=== PATIENT | male | born 1955 | race Caucasian/White ===

== ENCOUNTER → 2023-07-20 07:17 | Outpatient (REF) | payer MEDICARE, OTHER, SELFPAY ==
[2023-07-20 08:17] LABS: Microalbumin, Random Urine 3.2 mg/dl (0.6-1.7)
[2023-07-20 09:56] LABS: ALT (SGPT) 21 U/L (0-50); AST (SGOT) 27 U/L (17-59); Albumin 4.6 g/dl (3.5-5.0); Alkaline Phosphatase 59 U/L (38-126); Blood Urea Nitrogen 15 mg/dl (9-20); Calcium 9.2 mg/dl (8.4-10.2); Carbon Dioxide 26 mmol/L (22-30); Chloride 105 mmol/L (98-107); Glucose 143 mg/dl (70-99); HDL Cholesterol 48 mg/dl; LDL Cholesterol, Calculated 165 mg/dl; Potassium 4.2 mmol/L (3.5-5.1); Sodium 136 mmol/L (135-145); Total Bilirubin 1.1 mg/dl (0.2-1.3); Total Cholesterol 270 mg/dl (50-199); Total Protein 7.6 g/dl (6.3-8.2); Triglyceride 289 mg/dl (10-149); Very Low Density Lipoprotein 57 mg/dl (0-30); eGFR > 60.00
[2023-07-20 10:25] LABS: Glycohemoglobin (HgbA1c) 6.8 % (4.0-5.6)
== END ==
LOC: RAD 07:17
PROVIDERS: ATTENDING PHYSICIAN Family Medicine
DX: M54.12 Radiculopathy, cervical region (principal); E11.9 Type 2 diabetes mellitus without complications
CPT/HCPCS: 36415; 72050; 80053; 80061; 82043; 83036

== ENCOUNTER → 2023-08-30 09:22 | Outpatient (REF) | payer MEDICARE, OTHER, SELFPAY | LOC: PAVMRI 09:22 | PROVIDERS: ATTENDING PHYSICIAN Physical Medicine & Rehabilitation; FAMILY PHYSICIAN Internal Medicine | DX: M54.12 Radiculopathy, cervical region (principal) | CPT/HCPCS: 72141 ==

== ENCOUNTER → 2024-01-10 06:16 | Day surgery (SDC) | payer MEDICARE, OTHER, SELFPAY ==
[2024-01-10 12:09] LABS: Glucose - Point of Care 134 mg/dl (70-99)
== END ==
LOC: GI 06:16
PROVIDERS: ATTENDING PHYSICIAN Internal Medicine
DX: R13.10 Dysphagia, unspecified (principal); K44.9 Diaphragmatic hernia without obstruction or gangrene; K31.7 Polyp of stomach and duodenum; K22.2 Esophageal obstruction
CPT/HCPCS: 43249; 43239; 88305; 82962; 88342

== ENCOUNTER 2024-01-17 21:32 | Emergency (ER) | payer MEDICARE, OTHER, SELFPAY ==
[2024-01-17] VITALS (7 sets, daily range): BP systolic 144–221; BP diastolic 77–113; BMI 27.4
[2024-01-17 22:12] LABS: % Basophils 0.7 % (0-2); % Eosinophils 2.8 % (0-6); % Immature Granulocytes 0.3 % (0-0.5); % Monocytes 5.9 % (1.7-9.3); % Neutrophils 59.3 % (42.2-75.2); Absolute Basophils 0.1 10^3/uL (0-0.2); Absolute Eosinophils 0.2 10^3/uL (0-0.7); Absolute Lymphocytes 2.3 10^3/uL (1.2-3.4); Absolute Monocytes 0.4 10^3/uL (0.1-0.6); Absolute Neutrophils 4.4 10^3/uL (1.4-6.5); Hematocrit 45.2 % (39.0-52.0); Hemoglobin 15.7 g/dL (13.0-18.0); Mean Corp Hgb Conc. 34.7 g/dL (33.0-37.0); Mean Corpuscular Hgb 29.2 pg (27.0-31.0); Mean Platelet Volume 10.5 fL (7.4-10.4); Nucleated Red Blood Cells % 0 % (-); Platelet Count 173 10^3/uL (130-400); Red Blood Cell Count 5.38 10^6/uL (4.70-6.10); Red Cell Dist. Width 12.9 % (11.5-14.5); White Blood Cell Count 7.4 10^3/uL (4.8-10.8)
[2024-01-17 22:25] LABS: INR 0.87; PT 12.4 Sec (11.4-14.6)
[2024-01-17 22:26] LABS: APTT 30.5 Sec (23.4-35.0)
[2024-01-17 22:33] LABS: Glucose - Point of Care 155 mg/dl (70-99)
[2024-01-17 22:36] LABS: ALT (SGPT) 30 U/L (0-50); AST (SGOT) 34 U/L (17-59); Albumin 5.2 g/dl (3.5-5.0); Alkaline Phosphatase 54 U/L (38-126); Blood Urea Nitrogen 15 mg/dl (9-20); Calcium 9.8 mg/dl (8.4-10.2); Carbon Dioxide 25 mmol/L (22-30); Chloride 102 mmol/L (98-107); Estimated Creatinine Clearance 64 ml/min; Glucose 169 mg/dl (70-99); Potassium 4.1 mmol/L (3.5-5.1); Sodium 142 mmol/L (135-145); Total Bilirubin 0.8 mg/dl (0.2-1.3); Total Protein 8.3 g/dl (6.3-8.2); Troponin I 0.019 ng/ml; eGFR > 60.00
[2024-01-18] VITALS: BP 140/74
[2024-01-18 00:28] LABS: Troponin I 0.019 ng/ml
[2024-01-18 00:30] VITALS: BP 142/70
[2024-01-18 01:00] VITALS: BP 141/73
--- NOTE | 2024-01-18 01:27 | ED.GENMED ---
History of Present Illness
General
Chief Complaint: Numbness
Source: patient
Exam Limitations: none
Time Seen by Provider: 01/17/24 21:51
History of Present Illness
History of Present Illness:
This is a 68-year-old male with a history of coronary disease who presented after he had raise his arms above his head and suddenly noticed a tingling and numbness down into the right arm. Patient does not cervical spine disease and has had a
fusion. He states that the symptoms are much better now. He states he first got numb and tingly and then the tingling started to resolve shortly after that. It is now completely gone. He does admit that for the last 24 hours has had fatigue and
weakness. He states that he had a long hard day of work yesterday. He states since then he has been just tired and fatigued. He has had a little bit chest pain throughout the day today that has been constant and mild. He states it is nothing
like when he had his heart attack. No motor weakness. No vision changes. No speech changes.
Past History
Past History
ED Past Medical History: CAD, CHF, GERD, HTN, Hypercholesterolemia, [place] (September 2012), Psychiatric (Depression) and Other (Diverticulitis, cervical disc disease)
ED Past Surgical History: Appendectomy, Bowel resection, Cardiac (PTCA with stent LAD September 2012, October 2001, February 2004) and Orthopedic (Left biceps repair)
Social History
Tobacco: Former smoker
Alcohol: Occasional
Personal:
Living: with family
Employment: Not employed
Family History
Family History: CAD
Phy Exam
Physical Exam
Physical Exam:
CONSTITUTIONAL Patient alert and oriented to person, place and time. Well-appearing. Vital signs reviewed.
HEAD atraumatic, normocephalic.
EYES eyelids normal to inspection, Extraocular muscles intact, Conjunctiva normal, Sclera normal.
NECK normal range of motion, Trachea midline, no jugular venous distention.
RESPIRATORY CHEST No respiratory distress noted, Chest expansion equal, Bilateral breath sounds clear.
CARDIOVASCULAR regular rate and rhythm, Heart sounds normal.
ABDOMEN abdomen nontender, Bowel sounds normal. No distention.
BACK normal inspection, no obvious deformities
UPPER EXTREMITY range of motion normal, Motor strength normal, no cyanosis, no edema.
LOWER EXTREMITY range of motion normal, Motor strength normal, no cyanosis, no edema.
NEURO Speech normal, No focal motor deficits, [place] coma scale 15, Memory normal, Cranial Nerves intact to screening exam. No pronator drift.
SKIN skin warm, dry, and normal in color.
Course
Orders/Labs/Results
Orders:
Orders
01/17/24 21:38
Electrocardiogram (*1) Urgent
Reason for Study: Other
Other Reason for Exam: Possible Stroke
Bedside Glucose- Treatment ONCE
EKG- Treatment ONCE
01/17/24 22:04
Complete Blood Count/With Diff Urgent
Comprehensive Metabolic Panel Urgent
PTT Urgent
Prothrombin Time Urgent
Troponin I Urgent
01/17/24 23:15
Chest [CR Chest - 2 Views ] Urgent
Comment:
Reason For Exam: Chest pain
01/17/24 23:54
Troponin I Urgent
Abnormal Lab Results
01/17/24 01/17/24
22:04 22:32
MPV 10.5 H fL
(7.4-10.4)
Glucose 169 H mg/dl
(70-99)
Total Protein 8.3 H g/dl
(6.3-8.2)
Albumin 5.2 H g/dl
(3.5-5.0)
POC Glucose 155 H mg/dl
(70-99)
01/17/24 22:04
01/17/24 22:04
Vital Signs
Initial and Last Documented VS:
Initial Vital Signs
Temp Pulse Resp BP Pulse Ox
98.4 F 64 16 221/113 100
01/17/24 21:35 01/17/24 21:35 01/17/24 21:35 01/17/24 21:35 01/17/24 21:35
Last Documented Vital Signs
Temp Pulse Resp BP Pulse Ox
98.4 F 48 18 147/78 95
01/17/24 21:35 01/17/24 23:30 01/17/24 23:30 01/17/24 23:30 01/17/24 23:30
MDM/Problems Addressed
Differential Diagnosis Includes:
Dissection, NE, ACS, cervical radiculopathy, CVA, electrolyte imbalance, dehydration
MDM/Problems Addressed:
Cervical radiculopathy, fatigue, chest pain
*Radiology
Radiology exam reviewed: all reviewed NAD by ED Provider
*Pulse Oximetry
Patient hypoxic: no
*Steam Fitter Supervisor Interpretation
Rate: normal
Interpretation: normal
Rhythm: sinus
*Critical Care Note
Total Time (30-74mins, 75-104mins- exclusive of procedures): 30 minutes
Data Reviewed
Review of Other/Old Records Reveals: Other (Prior EKG reviewed)
Source: patient
Further Testing Considered But Not Given:
Considered head CT but right upper extremity symptoms suspected to be cervical radiculopathy as it was related to an overhead position of the right upper extremity
Patient Management
Escalation/DeEscalation of care consider admission/obs:
Patient appears well and has a nonfocal exam. I suspect that the sensory change in his arm is related to his arm position as it only occurred while his hand was over his head. No clinical suspicion for CVA due to his fatigue and mild vague chest
discomfort, troponin x 2 unremarkable. Patient otherwise appears well feels well. Okay for discharge and outpatient follow-up
ED Attending Note
-
Portions of this chart may have been created with voice recognition software.� Occasional wrong word or��sound alike� substitutions may have occurred due to the inherent limitations of voice recognition software.
Discharge Plan
Departure
Patient Disposition: Home (Routine Discharge)
Date of Disposition: 01/18/24
Time of Disposition: 01:41
Patient with high blood pressure during this ER visit?: Yes
Discharge Problem:
Cervical radiculopathy, Fatigue
Instructions: Paresthesia (DC), BLOOD PRESSURE
Prescriptions:
No Action
lisinopril 10 mg Tablet
10 mg PO DAILY
aspirin 81 MG tablet,delayed release (DR/EC)
81 mg PO DAILY
atorvastatin 80 mg tablet
80 mg PO DAILY
Jardiance 10 mg Tablet
10 mg PO DAILY
pantoprazole [Protonix] 40 mg tablet,delayed release (DR/EC)
40 mg PO DAILY
Referrals:
UNKNOWN - PT DOES,NOT KNOW [Family Provider] -
Activity Restrictions/Additional Instructions:
Please see your doctor in the next 2 to 3 days for follow-up and reevaluation. Return immediately for worsening symptoms, tingling, motor weakness, chest pain, shortness of breath, palpitations or any other concerns.
Interventions
Interventions:
*Risk Screen - Suicide Last Done: 01/17/24 21:35
*General Assessment Last Done: 01/17/24 22:13
*Neglect/Abuse Screening Last Done: 01/17/24 21:35
ED- Fall Risk Assessment Last Done: 01/17/24 22:13
*ED COVID-19 Vaccine History Last Done: 01/17/24 22:13
ED- Neurological Assessment Last Done: 01/17/24 22:13
Discharge Date and Time
Print Language: HAITIAN
[2024-01-18 01:30] VITALS: BP 144/69
[2024-01-18 02:00] VITALS: BP 136/64
== END 2024-01-18 02:16 | disposition home or self-care (01) ==
LOC: EMR 21:32
PROVIDERS: Student in an Organized Health Care Education/Training Program; EMERGENCY PHYSICIAN Emergency Medicine
DX: M54.12 Radiculopathy, cervical region (principal); R53.83 Other fatigue; I25.10 Atherosclerotic heart disease of native coronary artery without angina pectoris; I11.0 Hypertensive heart disease with heart failure; I50.9 Heart failure, unspecified; E78.00 Pure hypercholesterolemia, unspecified; I25.2 Old myocardial infarction; K21.9 Gastro-esophageal reflux disease without esophagitis; Z87.891 Personal history of nicotine dependence; Z95.5 Presence of coronary angioplasty implant and graft; Z90.49 Acquired absence of other specified parts of digestive tract
CPT/HCPCS: 99285; 71046; 80053; 82962; 84484; 85025; 85610; 85730; 93005

== ENCOUNTER 2024-04-11 06:23 | Day surgery (SDC) | payer MEDICARE, OTHER, SELFPAY ==
[2024-04-11 10:14] LABS: Glucose - Point of Care 134 mg/dl (70-99)
== END 2024-04-11 11:30 | disposition home or self-care (01) ==
LOC: GI 06:23
PROVIDERS: ATTENDING PHYSICIAN Internal Medicine
DX: Z12.11 Encounter for screening for malignant neoplasm of colon (principal); K63.89 Other specified diseases of intestine; K57.30 Diverticulosis of large intestine without perforation or abscess without bleeding; K64.9 Unspecified hemorrhoids; D12.2 Benign neoplasm of ascending colon
CPT/HCPCS: 45380; 88305; 82962

== ENCOUNTER 2024-06-20 11:00 | Emergency (ER) | payer MEDICARE, OTHER, SELFPAY ==
[2024-06-20] VITALS (9 sets, daily range): BP systolic 132–155; BP diastolic 65–125
[2024-06-20 11:42] LABS: % Basophils 0.2 % (0-2); % Eosinophils 1.5 % (0-6); % Immature Granulocytes 0.5 % (0-0.5); % Lymphocytes 14.9 % (20.5-51.1); % Monocytes 6.1 % (1.7-9.3); % Neutrophils 76.8 % (42.2-75.2); Absolute Eosinophils 0.1 10^3/uL (0-0.7); Absolute Lymphocytes 1.2 10^3/uL (1.2-3.4); Absolute Monocytes 0.5 10^3/uL (0.1-0.6); Absolute Neutrophils 6.2 10^3/uL (1.4-6.5); Hematocrit 45.5 % (39.0-52.0); Hemoglobin 15.3 g/dL (13.0-18.0); Mean Corp Hgb Conc. 33.6 g/dL (33.0-37.0); Mean Corpuscular Hgb 28.8 pg (27.0-31.0); Mean Corpuscular Volume 85.5 fL (80.0-94.0); Mean Platelet Volume 11.1 fL (7.4-10.4); Nucleated Red Blood Cells % 0 % (-); Platelet Count 156 10^3/uL (130-400); Red Blood Cell Count 5.32 10^6/uL (4.70-6.10); Red Cell Dist. Width 13.2 % (11.5-14.5); White Blood Cell Count 8.1 10^3/uL (4.8-10.8)
[2024-06-20 11:59] LABS: ALT (SGPT) 26 U/L (0-50); AST (SGOT) 28 U/L (17-59); Albumin 4.6 g/dl (3.5-5.0); Alkaline Phosphatase 67 U/L (38-126); Blood Urea Nitrogen 19 mg/dl (9-20); Calcium 9.6 mg/dl (8.4-10.2); Carbon Dioxide 30 mmol/L (22-30); Chloride 103 mmol/L (98-107); Glucose 128 mg/dl (70-99); Potassium 4.4 mmol/L (3.5-5.1); Sodium 143 mmol/L (135-145); Total Bilirubin 1.2 mg/dl (0.2-1.3); Total Protein 7.9 g/dl (6.3-8.2); eGFR > 60.00
[2024-06-20 12:10] LABS: Troponin I < 0.012 ng/ml
--- NOTE | 2024-06-20 13:53 | ED.GENMED ---
History of Present Illness
<José Miguel Sauer Jr., PA-C - Last Filed: 06/21/24 10:31>
General
Chief Complaint: Chest Pain
Source: patient
Exam Limitations: none
Time Seen by Provider: 06/20/24 11:39
Nursing documentation reviewed up to this point in time: agreed with
History of Present Illness
History of Present Illness:
69-year-old male with past medical history of CAD hypertension hyperlipidemia presenting to the emergency department today with concerns of chest discomfort described as sharp abrupt started 3 days ago but has been somewhat ongoing since then now
with radiation to the back denies shortness of breath presented by the primary care doctor. Also has had some increased gas to the upper GI tract as well. Denies similar symptoms in the past. Has had heart attack in the past this feels very
different.
Past History
<José Miguel Sauer Jr., PA-C - Last Filed: 06/21/24 10:31>
Past History
ED Past Medical History: CAD, CHF, GERD, HTN, Hypercholesterolemia, [place] (September 2012), Psychiatric (Depression) and Other (Diverticulitis, cervical disc disease)
ED Past Surgical History: Appendectomy, Bowel resection, Cardiac (PTCA with stent LAD September 2012, October 2001, February 2004) and Orthopedic (Left biceps repair)
Social History
Tobacco: Former smoker
Alcohol: Occasional
Personal:
Living: with family
Employment: Not employed
Family History
Family History: CAD
Review of Systems
<JULIO Montana Jr. Last Filed: 06/21/24 10:31>
Review of Systems
Allergies reviewed?: Yes
All Other Systems: ROS reviewed and negative except as documented in HPI and ROS
Phy Exam
<JULIO Montana Jr. Last Filed: 06/21/24 10:31>
Physical Exam
Physical Exam:
GENERAL: Alert , in no apparent distress
EYE: pupils equal and reactive
NECK: Supple, no significant adenopathy.
ENT: o/p clr, mmm.
CARDIAC: Regular rate and rhythm .
LUNGS: Clear breath sounds bilaterally, no acute respiratory distress, no wheezes/rales/rhonchi
ABDOMEN: Soft, without focal tenderness, no r/g, no cvat
NEUROLOGICAL: Alert and oriented, no focal neuro deficits
SKIN: Warm and dry, skin intact.
MUSCULOSKELETAL: No edema, well perfused.
PSYCH: Normal and appropriate interaction.
Scores
<Smita Fong PA-C - Last Filed: 06/21/24 01:34>
Heart Score for Chest Pain Patients
STEMI patient?: Not applicable
Course
<José Miguel Sauer Jr., PA-C - Last Filed: 06/21/24 10:31>
Orders/Labs/Results
Orders:
Orders
06/20/24 11:00
Electrocardiogram (*1) Urgent
Reason for Study: Chest Pain
EKG- Treatment ONCE
06/20/24 11:37
Complete Blood Count/With Diff Urgent
Comprehensive Metabolic Panel Urgent
Lipase Urgent
Troponin I Urgent
06/20/24 12:05
CT Chest PE Study Urgent
Comment:
Reason For Exam: cp to back sharp
06/20/24 13:54
Electrocardiogram (*1) Urgent
Reason for Study: Chest Pain
EKG- Treatment ONCE
06/20/24 14:01
Troponin I Urgent
06/20/24 14:42
Add On- LAB Urgent
Tests Added?: lipase
06/20/24 16:00
Electrocardiogram (*1) Urgent
Reason for Study: Chest Pain
EKG- Treatment ONCE
06/20/24 16:18
Troponin I Urgent
Abnormal Lab Results
06/20/24
11:37
MPV 11.1 H fL
(7.4-10.4)
Neutrophils % 76.8 H %
(42.2-75.2)
Lymphocytes % 14.9 L %
(20.5-51.1)
Glucose 128 H mg/dl
(70-99)
06/20/24 11:37
06/20/24 11:37
Vital Signs
Initial and Last Documented VS:
Initial Vital Signs
Temp Pulse Resp BP Pulse Ox
97.8 F 62 14 154/76 100
06/20/24 11:05 06/20/24 11:05 06/20/24 11:05 06/20/24 11:05 06/20/24 11:05
Last Documented Vital Signs
Temp Pulse Resp BP Pulse Ox
98.2 F 58 22 132/65 98
06/20/24 11:09 06/20/24 17:30 06/20/24 17:30 06/20/24 17:00 06/20/24 11:09
<Smita Fong PA-C - Last Filed: 06/21/24 01:34>
Orders/Labs/Results
Orders:
Orders
06/20/24 11:00
Electrocardiogram (*1) Urgent
Reason for Study: Chest Pain
EKG- Treatment ONCE
06/20/24 11:37
Complete Blood Count/With Diff Urgent
Comprehensive Metabolic Panel Urgent
Lipase Urgent
Troponin I Urgent
06/20/24 12:05
CT Chest PE Study Urgent
Comment:
Reason For Exam: cp to back sharp
06/20/24 13:54
Electrocardiogram (*1) Urgent
Reason for Study: Chest Pain
EKG- Treatment ONCE
06/20/24 14:01
Troponin I Urgent
06/20/24 14:42
Add On- LAB Urgent
Tests Added?: lipase
06/20/24 16:00
Electrocardiogram (*1) Urgent
Reason for Study: Chest Pain
EKG- Treatment ONCE
06/20/24 16:18
Troponin I Urgent
Abnormal Lab Results
06/20/24
11:37
MPV 11.1 H fL
(7.4-10.4)
Neutrophils % 76.8 H %
(42.2-75.2)
Lymphocytes % 14.9 L %
(20.5-51.1)
Glucose 128 H mg/dl
(70-99)
06/20/24 11:37
06/20/24 11:37
Vital Signs
Initial and Last Documented VS:
Initial Vital Signs
Temp Pulse Resp BP Pulse Ox
97.8 F 62 14 154/76 100
06/20/24 11:05 06/20/24 11:05 06/20/24 11:05 06/20/24 11:05 06/20/24 11:05
Last Documented Vital Signs
Temp Pulse Resp BP Pulse Ox
98.2 F 58 22 132/65 98
06/20/24 11:09 06/20/24 17:30 06/20/24 17:30 06/20/24 17:00 06/20/24 11:09
<José Miguel Sauer Jr., PA-C - Last Filed: 06/21/24 10:31>
MDM/Problems Addressed
MDM/Problems Addressed:
69-year-old male presenting to the emergency department today with concerns of chest pain rating to the back worsening over the past 3 days. Denies shortness of breath has had intermittent sweatiness. CT PE performed concerning the patient has
concerns of pain rating to the back also concern for possible aortic pathology. Case signed out pending CT scan. Otherwise well throughout the ER stay. 2 negative troponin levels EKGs.
<Smita R. Derham, PA-C - Last Filed: 06/21/24 01:34>
*Critical Care Note
Total Time (30-74mins, 75-104mins- exclusive of procedures): Not Applicable
<Smita Fong PA-C - Last Filed: 06/21/24 01:34>
Update Note
Update Note:
Update: Received patient in sign out. CTA chest negative for any evidence of pulmonary embolism, aortic dissection, or acute abnormalities of lungs. Repeat troponin undetectable. EKG�s remain unchanged. Low suspicion for acute coronary syndrome
given serial troponins negative x3 with stable EKGs. Patient remains well appearing, and no apparent distress. Feel patient stable for discharge home. Given risk factors will place patient on chest pain hotline however do suspect possibly an
underlying component of GERD. Will advise famotidine daily and close monitoring of symptoms at home. Strict return precautions discussed. Patient verbalized understanding.
ED Attending Note
<José Miguel Sauer Jr., PA-C - Last Filed: 06/21/24 10:31>
-
Portions of this chart may have been created with voice recognition software.� Occasional wrong word or��sound alike� substitutions may have occurred due to the inherent limitations of voice recognition software.
Discharge Plan
Departure
Patient Disposition: Home (Routine Discharge)
Date of Disposition: 06/20/24
Time of Disposition: 17:30
Patient with high blood pressure during this ER visit?: No
Condition: Good
Covid-19: Not Applicable
Discharge Problem:
Chest pain
Instructions: Chest Pain DCA Follow Up, BLOOD PRESSURE
Prescriptions:
No Action
lisinopril 10 mg Tablet
10 mg PO DAILY
aspirin 81 MG tablet,delayed release (DR/EC)
81 mg PO DAILY
atorvastatin 80 mg tablet
80 mg PO DAILY
Jardiance 10 mg Tablet
10 mg PO DAILY
pantoprazole [Protonix] 40 mg tablet,delayed release (DR/EC)
40 mg PO DAILY
Referrals:
Александр Soto MD [Family Provider] -
Александр Modi MD [Active] - Follow up in 2-3 days
Activity Restrictions/Additional Instructions:
Return to the emergency department with any worsening chest pain or shortness of breath, chest pain worse with exertion or associated with nausea, light headedness, sweatiness, fevers, intractable vomiting, or any other concerns
- Your workup in the emergency department was negative. Your lab work showed no acute abnormalities. Your CT scan showed no evidence of a pulmonary embolism or aortic dissection.
- You can take OTC famotidine daily for the next 2 weeks to see if this helps improve symptoms. Stay well-hydrated. Get plenty of rest.
- Follow-up with cardiology for further evaluation/management. You will likely require further testing. Limit exertional activities until cleared by cardiology.
Monitor your symptoms closely and return to the emergency department with any acute worse/new symptoms or any other
Interventions
Interventions:
*Risk Screen - Suicide Last Done: 06/20/24 11:09
*General Assessment Last Done: 06/20/24 11:41
*Neglect/Abuse Screening Last Done: 06/20/24 11:09
*ED- Fall Risk Assessment Last Done: 06/20/24 11:41
*Nursing Disposition Last Done: 06/20/24 18:10
ED- Cardiac Assessment Last Done: 06/20/24 11:45
Discharge Date and Time
Discharge Date/Time: 06/20/24 18:10
Print Language: FRISIAN
[2024-06-20 14:39] LABS: Troponin I 0.014 ng/ml
[2024-06-20 15:40] LABS: Lipase 90 U/L (23-300)
[2024-06-20 17:15] LABS: Troponin I < 0.012 ng/ml
== END 2024-06-20 18:10 | disposition home or self-care (01) ==
LOC: EMR 11:00
PROVIDERS: Physician Assistant; Student in an Organized Health Care Education/Training Program; EMERGENCY PHYSICIAN Emergency Medicine; FAMILY PHYSICIAN Family Medicine
DX: R07.89 Other chest pain (principal); I25.10 Atherosclerotic heart disease of native coronary artery without angina pectoris; I11.0 Hypertensive heart disease with heart failure; I50.9 Heart failure, unspecified; E78.00 Pure hypercholesterolemia, unspecified; I25.2 Old myocardial infarction; Z87.891 Personal history of nicotine dependence; Z90.49 Acquired absence of other specified parts of digestive tract; Z95.5 Presence of coronary angioplasty implant and graft
CPT/HCPCS: 99284; 71275; 80053; 83690; 84484; 85025; 93005; Q9967

== ENCOUNTER → 2024-08-01 06:51 | Outpatient (REF) | payer MEDICARE, OTHER, SELFPAY ==
[2024-08-01 07:28] LABS: % Basophils 0.4 % (0-2); % Eosinophils 3.3 % (0-6); % Immature Granulocytes 0.4 % (0-0.5); % Lymphocytes 26.4 % (20.5-51.1); % Monocytes 6.1 % (1.7-9.3); % Neutrophils 63.4 % (42.2-75.2); Absolute Eosinophils 0.2 10^3/uL (0-0.7); Absolute Lymphocytes 1.8 10^3/uL (1.2-3.4); Absolute Monocytes 0.4 10^3/uL (0.1-0.6); Absolute Neutrophils 4.4 10^3/uL (1.4-6.5); Hematocrit 44.3 % (39.0-52.0); Hemoglobin 14.8 g/dL (13.0-18.0); Mean Corp Hgb Conc. 33.4 g/dL (33.0-37.0); Mean Corpuscular Hgb 28.8 pg (27.0-31.0); Mean Corpuscular Volume 86.2 fL (80.0-94.0); Mean Platelet Volume 11.3 fL (7.4-10.4); Nucleated Red Blood Cells % 0 % (-); Platelet Count 151 10^3/uL (130-400); Red Blood Cell Count 5.14 10^6/uL (4.70-6.10); Red Cell Dist. Width 12.9 % (11.5-14.5); White Blood Cell Count 6.9 10^3/uL (4.8-10.8)
[2024-08-01 07:55] LABS: ALT (SGPT) 25 U/L (0-50); AST (SGOT) 26 U/L (17-59); Albumin 4.6 g/dl (3.5-5.0); Alkaline Phosphatase 46 U/L (38-126); Blood Urea Nitrogen 15 mg/dl (9-20); Calcium 9.3 mg/dl (8.4-10.2); Carbon Dioxide 26 mmol/L (22-30); Chloride 109 mmol/L (98-107); Glucose 165 mg/dl (70-99); Sodium 142 mmol/L (135-145); Total Bilirubin 1.1 mg/dl (0.2-1.3); Total Protein 7.3 g/dl (6.3-8.2); eGFR > 60.00
== END ==
LOC: RCS 06:51
PROVIDERS: ATTENDING PHYSICIAN Physician Assistant Medical; FAMILY PHYSICIAN Family Medicine; REFERRING PHYSICIAN Family Medicine
DX: R07.9 Chest pain, unspecified (principal); I25.10 Atherosclerotic heart disease of native coronary artery without angina pectoris; I25.5 Ischemic cardiomyopathy; R10.84 Generalized abdominal pain
CPT/HCPCS: 36415; 80053; 85025; 93306

== ENCOUNTER → 2024-08-07 06:37 | Outpatient (REF) | payer MEDICARE, OTHER, SELFPAY | LOC: RCS 06:37 | PROVIDERS: ATTENDING PHYSICIAN Physician Assistant Medical; FAMILY PHYSICIAN Family Medicine | DX: R07.9 Chest pain, unspecified (principal); I25.10 Atherosclerotic heart disease of native coronary artery without angina pectoris; I25.5 Ischemic cardiomyopathy | CPT/HCPCS: 78452; 93017; A9500; J2785 ==

== ENCOUNTER → 2024-08-21 07:31 | Outpatient (REF) | payer MEDICARE, OTHER, SELFPAY ==
[2024-08-21 08:39] LABS: Microalbumin, Random Urine 1.5 mg/dl (0.6-1.7)
[2024-08-21 08:50] LABS: Glycohemoglobin (HgbA1c) 7.1 % (4.0-5.6)
[2024-08-21 09:01] LABS: HDL Cholesterol 45 mg/dl; LDL Cholesterol, Calculated 125 mg/dl; Total Cholesterol 233 mg/dl (50-199); Triglyceride 316 mg/dl (10-149); Very Low Density Lipoprotein 63 mg/dl (0-30)
[2024-08-21 12:52] LABS: PSA, Total - Diagnostic 0.59 ng/ml (0.0-4.0)
== END ==
LOC: REG 07:31
PROVIDERS: ATTENDING PHYSICIAN Family Medicine; FAMILY PHYSICIAN Family Medicine
DX: E11.69 Type 2 diabetes mellitus with other specified complication (principal); E78.2 Mixed hyperlipidemia; R35.0 Frequency of micturition
CPT/HCPCS: 36415; 80061; 82043; 83036; 84153

== ENCOUNTER → 2024-09-09 06:48 | Outpatient (REF) | payer MEDICARE, OTHER, SELFPAY | LOC: RAD 06:48 | PROVIDERS: ATTENDING PHYSICIAN Internal Medicine; FAMILY PHYSICIAN Family Medicine | DX: Z87.19 Personal history of other diseases of the digestive system (principal) | CPT/HCPCS: 74177; Q9967 ==

== ENCOUNTER → 2024-12-10 07:16 | Outpatient (REF) | payer MEDICARE, OTHER, SELFPAY ==
[2024-12-10 08:42] LABS: Hematocrit 47.4 % (39.0-52.0); Hemoglobin 15.9 g/dL (13.0-18.0); Mean Corp Hgb Conc. 33.5 g/dL (33.0-37.0); Mean Corpuscular Volume 86.5 fL (80.0-94.0); Platelet Count 156 10^3/uL (130-400); Red Cell Dist. Width 13.1 % (11.5-14.5)
[2024-12-10 09:17] LABS: ALT (SGPT) 26 U/L (0-50); AST (SGOT) 27 U/L (17-59); Albumin 4.5 g/dl (3.5-5.0); Alkaline Phosphatase 55 U/L (38-126); Blood Urea Nitrogen 13 mg/dl (9-20); Calcium 9.2 mg/dl (8.4-10.2); Carbon Dioxide 27 mmol/L (22-30); Chloride 103 mmol/L (98-107); Glucose 153 mg/dl (70-99); Potassium 4.9 mmol/L (3.5-5.1); Sodium 139 mmol/L (135-145); Total Protein 7.8 g/dl (6.3-8.2); eGFR > 60.00
[2024-12-10 09:21] LABS: Glycohemoglobin (HgbA1c) 6.8 % (4.0-5.6)
== END ==
LOC: REG 07:16
PROVIDERS: ATTENDING PHYSICIAN Family Medicine
DX: E11.69 Type 2 diabetes mellitus with other specified complication (principal); I10 Essential (primary) hypertension
CPT/HCPCS: 36415; 80053; 83036; 85027